=== PATIENT | male | born 1960 | race Caucasian/White ===

== ENCOUNTER 2025-04-11 07:24 | Day surgery (SDC) | payer OTHER ==
[2025-04-10 14:14] VITALS: BMI 31.0
[2025-04-11] MEDS ORDERED: BUPIVACAINE HCL/EPINEPHRINE/PF 30 ML VIAL IJ ONE (07:58)
[2025-04-11] MEDS ORDERED: BUPIVACAINE HCL/PF 0.5% (5 MG/ML) 30 ML VIAL IJ ONE (09:29)
[2025-04-11] MEDS ORDERED: DEXAMETHASONE SOD PHOSPHATE 10 MG/1 ML VIAL ONE (09:29)
[2025-04-11] MEDS ORDERED: MIDAZOLAM HCL 2 MG/2 ML SINGLE DOSE VIAL ONE (09:29)
[2025-04-11] MEDS ORDERED: FENTANYL CITRATE/PF 50 MCG/ML VIAL ONE (09:29)
[2025-04-11] MEDS ORDERED: LACTATED RINGERS SOLUTION 1,000 ML IV SCH (09:30)
[2025-04-11] MEDS ORDERED: PROPOFOL 40 ML ONE (09:56)
[2025-04-11] MEDS: BUPIVACAINE 0.25% /EPI 1:200,000 10 ML VIAL NR ONE ×2 (10:10)
[2025-04-11] MEDS: BUPIVACAINE HCL/PF 0.25% (2.5MG/ML) 10 ML VIAL IJ ONE (10:10)
[2025-04-11] MEDS ORDERED: PROPOFOL 20 ML ONE ×2 (10:33→11:04)
[2025-04-11] MEDS ORDERED: ACETAMINOPHEN INJECTION 100 ML ONE (11:53)
[2025-04-11] MEDS: ACETAMINOPHEN 1000 MG/100 ML BAG IVPB PRN (12:00)
[2025-04-11 13:39] VITALS: RESP 16; TEMP 97.2
[2025-04-11 14:25] VITALS: BP 119/67; PULSE 61
== END 2025-04-11 14:15 | disposition home or self-care (01) ==
LOC: FASU 07:24
PROVIDERS: ATTEND Orthopaedic Surgery
PROC: 0LM24ZZ Reattachment of Left Shoulder Tendon, Percutaneous Endoscopic Approach (ICD-10-PCS; principal; 2025-04-11 10:10)
PROC: 0RNK4ZZ Release Left Shoulder Joint, Percutaneous Endoscopic Approach (ICD-10-PCS; 2025-04-11 10:10)
DX: M75.102 Unspecified rotator cuff tear or rupture of left shoulder, not specified as traumatic (principal)
CPT/HCPCS: 93005; 93010; 94760; C1713; J1100